=== PATIENT | male | born 1955 | race Caucasian/White ===

== ENCOUNTER 2024-02-27 08:01 | Day surgery (SDC) | payer OTHER ==
[~2024-02-27] VITALS: Ht 162.6 cm; Wt 99.8 kg
[2024-02-27] MEDS ORDERED: fentaNYL citrate 0.05 MG/ML VIAL ONE (09:54)
[2024-02-27] MEDS: fentaNYL citrate 0.05 MG/ML VIAL IVP ONE (10:16)
[2024-02-27] MEDS: LIDOCAINE 2% 100 MG/5 ML UJET TP ONE (10:24)
== END 2024-02-27 11:45 | disposition home or self-care (01) ==
LOC: MDS 08:01 → MMU 08:02 → MDS 11:45
PROVIDERS: ATTEND Internal Medicine Gastroenterology
DX: D50.9 Iron deficiency anemia, unspecified (principal); K57.30 Diverticulosis of large intestine without perforation or abscess without bleeding; I10 Essential (primary) hypertension; E11.9 Type 2 diabetes mellitus without complications; E78.5 Hyperlipidemia, unspecified; Z79.4 Long term (current) use of insulin; Z79.899 Other long term (current) drug therapy
CPT/HCPCS: 45378; 82948; J3010